=== PATIENT | female | born 1950 | race Caucasian/White ===

== ENCOUNTER 2018-08-02 09:18 | Emergency (ER) | payer MEDICARE ==
[2018-08-02 10:34] LABS: BILIRUBIN,URINE NEG (NEG); CLARITY,URINE HAZY; COLOR,URINE AMBER; GLUCOSE,URINE NEG (NEG)
[2018-08-02 10:35] LABS: BACTERIA,URINE MOD /HPF (0-FEW); NITRITE,URINE POS (NEG); RBC,URINE 0 /HPF (0-2); UROBILINOGEN,URINE 4 mg/dL (0.2 mg/dL); WBC,URINE OCC /HPF (0-4)
--- NOTE | 2018-08-02 11:09 | PHYS DOC ---
Past History Past Medical History: Dementia, Depression, Hypertension, Other Past Surgical History: Other Alcohol Use: None Drug Use: None Adult General Chief Complaint Chief Complaint: confusion and combative HPI HPI Patient is a 67 year old female who brought in by her has been for possible urinary tract infection. Patient has severe dementia and unable to give history. Patient has been states she had advanced dementia for several years and for the last few days she was not cooperating with her care like her usual and refused to take a shower and it was and taking care medication and was agitated. Patient has been states he called her primary care physician was concern for possible UTI to cause all of this problem. Patient is not able to give history or telling any word except 'yes' and smiling and laughing constantly. Review of Systems Review of Systems Unable to obtain because of dementia Physical Exam Physical Exam Constitutional: Well nourished, no acute distress, non-toxic appearance. [] HENT: Normocephalic, atraumatic Eyes: PERRLA, EOMI, conjunctiva normal, no discharge. [] Neck: Normal range of motion, no tenderness, supple, no stridor. [] Cardiovascular:Heart rate regular rhythm, no murmur [] Lungs & Thorax: Bilateral breath sounds clear to auscultation [] Abdomen: Bowel sounds normal, soft, no tenderness, no masses, no pulsatile masses. [] Skin: Warm, dry, no erythema, no rash. [] Extremities: No tenderness, no cyanosis, no clubbing, ROM intact, no edema. [] Neurologic: Alert, normal motor function, disoriented 3, Current Patient Data Vital Signs Vital Signs Date Time Temp Pulse Resp B/P (MAP) Pulse Ox O2 Delivery O2 Flow Rate FiO2 08/02/18 09:45 97.8 104 26 95 Room Air Lab Results Laboratory Tests Test 08/02/18 10:05 Urine Collection Type Unknown Urine Color [place] Urine Clarity Hazy Urine pH 6.0 Urine Specific [place] 1.025 Urine Protein 100 mg/dl (NEG-TRACE) Urine Glucose (UA) Neg mg/dL (NEG) Urine Ketones (Stick) Trace mg/dL (NEG) Urine Blood Neg (NEG) Urine Nitrite Pos (NEG) Urine Bilirubin Neg (NEG) Urine Urobilinogen Dipstick 4 mg/dL (0.2 mg/dL) Urine Leukocyte Esterase Neg (NEG) Urine RBC 0 /HPF (0-2) Urine WBC Occ /HPF (0-4) Urine Squamous Epithelial Cells None /LPF Urine Bacteria Mod /HPF (0-FEW) Urine Mucus Mod /LPF EKG EKG [] Radiology/Procedures Radiology/Procedures [] Course & Med Decision Making Course & Med Decision Making Pertinent Labs reviewed. (See chart for details) Evaluation of patient in ER showed 67-year-old female patient with advanced dementia brought in by her because of increasing of agitation and refusing eating and drinking like her usual. Patient had stable vital signs and was cooperative but did not talk except for few words. Patient had positive nitrates in urine without WBC and mild hypokalemia and elevation of creatinine. Patient tolerated oral intake. patient's considering [facility] but patient has [employer] that is not covering at this hospital. Patient's was advised to follow with her primary care physician for possible retirement placement. Dragon Disclaimer Dragon Disclaimer This electronic medical record was generated, in whole or in part, using a voice recognition dictation system. Departure Departure: Impression: Primary Impression: Dementia with behavioral problem Additional Impressions: Urinary tract infection Hypokalemia Mild dehydration Disposition: HOME, SELF-CARE (at 1150) Condition: STABLE Referrals: MONICA STINSON PAC (PCP) Patient Instructions: Dehydration, Adult, Dementia, Hypokalemia, Urinary Tract Infection Additional Instructions: Drink plenty of liquids Follow-up with your primary care physician in 2-3 days for possible retirement placement Return to ER if not getting better Scripts Ciprofloxacin Hcl (CIPRO) 250 Mg Tablet 1 TAB PO BID for urinary tract infection, #6 TAB Prov: PARIS MCBRIDE MD 08/02/18 Problem Qualifiers Primary Impression: Dementia with behavioral problem Dementia type: Alzheimer's disease Alzheimer's disease onset: early-onset Qualified Codes: G30.0 - Alzheimer's disease with early onset; F02.81 - Dementia in other diseases classified elsewhere with behavioral disturbance Additional Impressions: Urinary tract infection Urinary tract infection type: acute cystitis Hematuria presence: without hematuria Qualified Codes: N30.00 - Acute cystitis without hematuria PARIS MCBRIDE MD Aug 02, 2018 11:09
[2018-08-02 11:20] LABS: BASO % 1 % (0-3); EOS # 0.1 x10^3/uL (0.0-0.7); EOS % 2 % (0-3); HEMOGLOBIN 12.7 g/dL (12.0-15.5); LYMPH # 1.7 x10^3/uL (1.0-4.8); LYMPH % 28 % (24-48); MEAN CORPUSCULAR HEMOGLOBIN 31 pg (25-35); MEAN CORPUSCULAR HGB CONC 34 g/dL (31-37); MEAN CORPUSCULAR VOLUME 89 fL (79-100); MONO # 0.5 x10^3/uL (0.0-1.1); MONO % 8 % (0-9); NEUT # 3.8 x10^3uL (1.8-7.7); NEUT % 62 % (31-73); PLATELET COUNT 379 x10^3/uL (140-400); RED BLOOD COUNT 4.15 x10^6/uL (3.50-5.40); RED CELL DISTRIBUTION WIDTH 14.2 % (11.5-14.5); WHITE BLOOD COUNT 6.1 x10^3/uL (4.0-11.0)
[2018-08-02 11:32] LABS: ALBUMIN 3.5 g/dL (3.4-5.0); ALBUMIN/GLOBULIN RATIO 1.1 (1.0-1.7); CALCIUM 8.9 mg/dL (8.5-10.1); CREATININE 0.9 mg/dL (0.6-1.0); GFR 62.5; MAGNESIUM 1.8 mg/dL (1.8-2.4); POTASSIUM 3.3 mmol/L (3.5-5.1); TOTAL BILIRUBIN 0.6 mg/dL (0.2-1.0); TOTAL PROTEIN 6.7 g/dL (6.4-8.2)
[2018-08-02] MEDS ORDERED: POTASSIUM CHLORIDE 20 MEQ TABLET.ER. PO ONE ×3 (11:45→11:48)
[2018-08-02] MEDS ORDERED: CIPR250T30 PO (11:52)
[2018-08-02] MEDS ORDERED: POTASSIUM BICARB 25 MEQ EFFERVESCENT TAB. PO ONE ×2 (11:56→13:30)
[2018-08-02 12:14] VITALS: BP 108/64
[2018-08-03] MEDS ORDERED: POTASSIUM BICARB 25 MEQ EFFERVESCENT TAB. PO SCH (09:00)
[2018-08-03] MEDS ORDERED: POTASSIUM BICARB 25 MEQ EFFERVESCENT TAB. PO ONE (09:00)
== END 2018-08-02 12:27 | disposition home or self-care (01) ==
LOC: ER 09:18
DX: G30.0 Alzheimer's disease with early onset (principal); F02.81 Dementia in other diseases classified elsewhere, unspecified severity, with behavioral disturbance; N30.00 Acute cystitis without hematuria; E87.6 Hypokalemia; E86.0 Dehydration; F32.9 Major depressive disorder, single episode, unspecified; I10 Essential (primary) hypertension
CPT/HCPCS: 36415; 80053; 81001; 83735; 85025; 87086; 87186; 99283